=== PATIENT | male | born 1985 | race Caucasian/White ===

== ENCOUNTER 2017-10-25 17:36 | Emergency (ER) | payer OTHER ==
[~2017-10-25] VITALS: Ht 170.2 cm; Wt 111.0 kg
[~2017-10-25 17:36] MED LIST: GLC/500 PO; LISI-725 PO; OMEP40CA PO
[2017-10-25 17:40] VITALS: TEMP 37; Ht 170.2 cm; Wt 111.0 kg
--- NOTE | 2017-10-25 18:31 | EMERGENCY ROOM VISIT NOTE ---
History First contact with patient: 17:48 Chief Complaint: RASH Stated Complaint: BAD RASH ON HANDS AND FEET (TYPE 2 DIABETIC) History of Present Illness The patient is a 32 year old male who presents to the Emergency Room with complaints of a rash to his feet has recently spread to his hands. The patient' s rash on the feet has been going on for at least one month. He initially tried Neosporin and bandages with no relief. The patient saw his primary care 2 days ago. He was told that it was athlete's foot. He was instructed to put on antifungal cream, which he has been doing twice daily for the last 2 days. He has not noticed an improvement. He denies any other systemic symptoms such as fever or chills. The patient does have a history of type 2 diabetes. His blood sugars have been anywhere from 120s-180s. Review of Systems 6 system review negative. Please see pertinent positives in the history of present illness section. Past Medical/Surgical History Medical Problems: (1) Benign hypertension (2) Diabetes Family History Cancer Diabetes mellitus FHx: lung disease Hypertension Social History Smoking Status: Current Every Day Smoker Alcohol Use: none Drug Use: none Marital Status: in relationship Housing Status: lives with family Occupation Status: employed Current/Historical Medications Scheduled Atorvastatin (Lipitor), 10 MG PO QAM Lisinopril (Lisinopril), 20 MG PO QAM Metformin Hcl (Glucophage), 1,000 MG PO BIDM Omeprazole (Prilosec), 40 MG PO QAM Physical Exam Vital Signs Date Time Temp Pulse Resp B/P (MAP) Pulse Ox O2 Delivery O2 Flow Rate FiO2 10/25/17 18:48 100 18 156/104 95 10/25/17 17:40 37.0 105 18 147/104 96 Room Air Physical Exam VITALS: Vitals are noted on the nurse's note and reviewed by myself. Vital signs stable. GENERAL: 32-year-old male, in no acute distress, nondiaphoretic, well-developed well-nourished. SKIN: RIGHT FOOT: 2 mm, circular vesicles filled with serous fluid noted to the right heel. Some white plaques noted to the webspaces. LEFT FOOT: Approximate 1 cm circular, scaling, excoriated lesion noted to the arch of the left foot. RIGHT HAND: Approximately 1 cm area of excoriation and scaling noted to the palmar aspect of the right hand. No surrounding erythema or edema noted to any of the areas. No warmth appreciated.. HEAD: Normocephalic atraumatic. MUSCULOSKELETAL: Strength 5/5 throughout. NEURO: Patient was alert and oriented to person place and time. Normal sensation to touch. No focal neurological deficits. Medical Decision & Procedures ED Course The patient was seen and examined Discharge instructions were reviewed, and he was discharged in good condition Medical Decision Differential diagnosis: Tinea pedis, cellulitis, diabetic dermatitis, viral infection This patient is a 32-year-old male with a history of diabetes type 2 that presents the emergency department with painful lesions on his feet and spreading to his hands. On exam, he has areas of tinea pedis in between the toes. He also has areas of scaling and excoriation on the feet and hands. The patient saw his primary care physician and was started on an antifungal. He has only been taking this for the last 2 days. I believe the presentation is likely consistent with tinea pedis. There is no signs of bacterial infection. No erythema, warmth or fever. He was encouraged to keep the course with the antifungals for at least another week. He also was counseled on the importance of keeping his feet dry. He is in agreement and comfortable with this plan. He is encouraged to return to the emergency department with worsening symptoms; especially, fever, increased warmth, swelling or pain. This chart was completed in part utilizing [employer] Speech Voice Recognition software. Attempts were made to minimize the grammatical errors, random word insertions, pronoun errors and incomplete sentences. Any formal questions or concerns about the content, text or information contained within the body of this dictation should be directly addressed to the provider for clarification. Medication Reconcilliation Current Medication List: was personally reviewed by me Blood Pressure Screening Patient's blood pressure: Elevated blood pressure Blood pressure disposition: Did not require urgent referral (asymptomatic) Impression Primary Impression: Tinea pedis Departure Information Dispostion Home / Self-Care Condition GOOD Referrals Janet Carney D.O. (PCP) Anton Vivas M.D. Patient Instructions My [facility] Additional Instructions You had been evaluated in the emergency department for a rash to your feet and hands. Please continue to treat athlete's foot with a topical antifungal cream twice daily. Please try this for at least one week. It is very important to keep the feet dry. Thoroughly dry after showering. Please take Claritin during the day or Benadryl at night as needed for itching. It may help to keep socks on at night to prevent scratching the area. Please follow-up with your primary care physician in one week for recheck If there is no improvement in 2 weeks, you may consider following with a [employer]orer hides [employer]. A number has been provided. Please do not hesitate to return to the emergency department with worsening symptoms; especially, increased redness, swelling, pain or fever
[2017-10-25] MEDS ORDERED: METF-384 PO (18:40)
[2017-10-25] MEDS ORDERED: OMEP40CA41 PO (18:40)
[2017-10-25] MEDS ORDERED: LSN20 PO (18:40)
[2017-10-25 18:48] VITALS: BP 156/104; PULSE 100; O2SAT 95
[2017-10-25] MEDS ORDERED: ATOR10TA82 PO (22:01)
== END 2017-10-25 18:49 | disposition home or self-care (01) ==
LOC: C.EDB 17:37 → C.EDD 18:49
DX: B35.3 Tinea pedis (principal); E11.9 Type 2 diabetes mellitus without complications; I10 Essential (primary) hypertension; F17.200 Nicotine dependence, unspecified, uncomplicated; Z79.84 Long term (current) use of oral hypoglycemic drugs; Z80.9 Family history of malignant neoplasm, unspecified; Z83.3 Family history of diabetes mellitus; Z82.49 Family history of ischemic heart disease and other diseases of the circulatory system

== ENCOUNTER 2017-11-13 22:47 | Emergency (ER) | payer OTHER ==
[~2017-11-13] VITALS: Ht 170.2 cm; Wt 110.2 kg
[~2017-11-13 22:47] MED LIST changes: +ATOR10TA82 PO; -GLC/500 PO; -LISI-725 PO; +LSN20 PO; +METF-384 PO; -OMEP40CA PO; +OMEP40CA41 PO
[2017-11-13 22:49] VITALS: TEMP 36.7; Ht 170.2 cm; Wt 110.2 kg
[2017-11-13] MEDS ORDERED: CLINDAMYCIN HCL 150 MG CAP PO ONE (23:15)
[2017-11-13] MEDS ORDERED: CLIN300C2 PO (23:44)
--- NOTE | 2017-11-13 23:44 | EMERGENCY ROOM VISIT NOTE ---
History Report prepared by Fara: Severino Stanford Under the Supervision of: Dr. Lawrence Cabrera D.O. First contact with patient: 22:58 Chief Complaint: DENTAL PAIN Stated Complaint: VERY BAD TOOTH INFECTION Nursing Triage Summary: Pt has had infections in mouth before. Pt has appointment next month pain started yesterday on bottom left. Pt reports top of tooth broke off about a week ago and couldn't get in to see dentist for about a month. History of Present Illness The patient is a 32 year old male who presents to the Emergency Room with complaints of worsening pain/swelling in his left lower jaw that began a few days ago. The patient states that he broke a tooth in the lower left side of his mouth two weeks ago. He now is experiencing some pain and swelling around that tooth. Nothing seems to improve the pain. He did feel a fever earlier today , but this has now resolved. Source of History: patient Onset: A few days ago Position: teeth (left lower mouth) Timing: worsening Modifying Factors (Relieving): other (N/a) Associated Symptoms: + fevers Review of Systems See HPI for pertinent positives & negatives. A total of 10 systems reviewed and were otherwise negative. Past Medical & Surgical Medical Problems: (1) Benign hypertension (2) Diabetes Family History Cancer Diabetes mellitus FHx: lung disease Hypertension Social History Smoking Status: Current Every Day Smoker Alcohol Use: none Drug Use: none Marital Status: in relationship Housing Status: lives with family Occupation Status: employed Current/Historical Medications Scheduled Atorvastatin (Lipitor), 10 MG PO QAM Clindamycin Hcl (Cleocin), 300 MG PO QID Lisinopril (Lisinopril), 20 MG PO QAM Metformin Hcl (Glucophage), 1,000 MG PO BIDM Omeprazole (Prilosec), 40 MG PO QAM Allergies Coded Allergies: Shellfish (Verified Allergy, Severe, ANAPHYLAXIS, 10/25/17) Penicillins (Unverified Allergy, Mild, 01/19/16) Iodine (Verified Allergy, Unknown, SEAFOOD- THROAT SWELLS SHUT, 01/19/16) Uncoded Allergies: GENERAL ANETHESIA (Adverse Reaction, Intermediate, UNKNOWN, 12/02/09) Physical Exam Vital Signs Date Time Temp Pulse Resp B/P (MAP) Pulse Ox O2 Delivery O2 Flow Rate FiO2 11/13/17 22:49 36.7 108 20 158/109 98 Room Air Physical Exam CONSTITUTIONAL/VITAL SIGNS: Reviewed / noted above. GENERAL: Non-toxic in appearance. INTEGUMENTARY: Warm, dry, and Stokes. HEAD: Normocephalic. EYES: without scleral icterus or trauma. ENT/OROPHARYNX: clear and moist. Tooth number 19 is broke at or below the level of the gum line, no obvious abscess or mucosal edema. No Facial swelling. LYMPHADENOPATHY/NECK: Is supple without lymphadenopathy or meningismus. RESPIRATORY: Lungs clear and equal. CARDIOVASCULAR: Regular rate and rhythm. GI/ABDOMEN: Soft and nontender. No organomegaly or pulsatile mass. No rebound or guarding. Normal bowel sounds. EXTREMITIES: Warm and well perfused. BACK: No CVA tenderness. NEUROLOGICAL: Intact without focal deficits. PSYCHIATRIC: normal affect. MUSCULOSKELETAL: Normally developed with good muscle tone. Medical Decision & Procedures Medications Administered Medications (Trade) Dose Ordered Sig/Ovidio Route Start Time Stop Time Status Last Admin Dose Admin Clindamycin HCl (Cleocin Cap) 300 mg NOW ONCE PO 11/13/17 23:15 11/13/17 23:16 DC 11/13/17 23:21 300 MG ED Course 2258: Previous medical records were reviewed. The patient was evaluated in room A3. A complete history and physical examination was performed. 2315: Ordered Clindamycin HCl 300 mg PO. 2315: After discussion with the patient he is in agreement with the treatment plan. he will follow up with his dentist. The patient will be discharged home. Medical Decision Differential includes abscess, Singh, dental fracture, Clive's angina, facial swelling/infection. This is a 32-year-old male who presents to the ED with a chief complaint of some left-sided face discomfort related to a dental fracture in the lower left maxillary area. He was concerned he might be getting an infection. The patient has a follow-up appointment with his dentist next month. The patient was examined. There is no obvious abscess or facial swelling. No significant lymphadenopathy. Patient does have a dental fracture as noted above. This appears to be chronic. The patient was started on clindamycin as he is allergic to penicillin. He was given a dose here tonight. He was felt to be stable for discharge. A prescription was provided. He does have follow-up with his dentist. Impression Primary Impression: Dentalgia Scribe Attestation The scribe's documentation has been prepared under my direction and personally reviewed by me in its entirety. I confirm that the note above accurately reflects all work, treatment, procedures, and medical decision making performed by me. Departure Information Dispostion Home / Self-Care Prescriptions Clindamycin Hcl (CLEOCIN) 300 Mg Cap 300 MG PO QID, #40 CAP Prov: Lawrence Cabrera D.O. 11/13/17 Referrals Janet Carney D.O. (PCP) Patient Instructions My [facility] Additional Instructions Clindamycin as prescribed. Follow-up with your dentist.
[2017-11-13 23:53] VITALS: BP 134/103; PULSE 92; O2SAT 96
== END 2017-11-13 23:54 | disposition home or self-care (01) ==
LOC: C.EDB 22:48 → C.EDA 23:54
DX: K08.89 Other specified disorders of teeth and supporting structures (principal); I10 Essential (primary) hypertension; E11.9 Type 2 diabetes mellitus without complications; Z83.3 Family history of diabetes mellitus; Z82.49 Family history of ischemic heart disease and other diseases of the circulatory system; F17.200 Nicotine dependence, unspecified, uncomplicated; Z91.013 Allergy to seafood; Z88.3 Allergy status to other anti-infective agents

== ENCOUNTER 2017-12-05 01:56 | Emergency (ER) | payer OTHER ==
[~2017-12-05] VITALS: Ht 165.1 cm; Wt 108.0 kg
[2017-12-05 02:01] VITALS: TEMP 37.5; Ht 165.1 cm; Wt 108.0 kg
[2017-12-05] MEDS ORDERED: MoRPHine SULFATE 4 MG/ML 1 ML CARP\\VIAL IV STA (02:24)
[2017-12-05] MEDS ORDERED: ONDANSETRON INJ 2 MG/ML 2 ML VIAL IV STA (02:24)
[2017-12-05] MEDS ORDERED: OPTIRAY 320 IV PRN (02:45)
[2017-12-05 03:19] LABS: BASO % 0.4 %; BASO ABS # 0.06 K/uL (0-0.2); EOS % 0.9 %; EOS ABS # 0.13 K/uL (0-0.5); HEMATOCRIT 37.7 % (42-52); HEMOGLOBIN 13.7 g/dL (14.0-18.0); IG# 0.06 K/uL (0.00-0.02); LYMPH % 26.7 %; LYMPH ABS # 3.71 K/uL (1.2-3.4); MEAN CELL VOLUME 81.8 fL (80-100); MEAN CORPUSCULAR HEMOGLOBIN 29.7 pg (25-34); MEAN CORPUSCULAR HGB CONC 36.3 g/dl (32-36); MEAN PLATELET VOLUME 8.5 fL (7.4-10.4); MONO % 9.2 %; MONO ABS # 1.28 K/uL (0.11-0.59); NEUT % 62.4 %; NEUT ABS # 8.68 K/uL (1.4-6.5); PLATELET COUNT 370 K/uL (130-400); RED CELL DISTRIBUTION WIDTH CV 13.1 % (11.5-14.5); RED CELL DISTRIBUTION WIDTH SD 39.5 fL (36.4-46.3); WHITE BLOOD COUNT 13.92 K/uL (4.8-10.8)
[2017-12-05] MEDS ORDERED: CEFTRIAXONE SOD INJ 1 GM ADDVIAL IV STA (03:39)
[2017-12-05 03:41] LABS: ALBUMIN 3.9 gm/dl (3.4-5.0); CALCIUM 9.1 mg/dl (8.5-10.1); CREATININE 0.7 mg/dl (0.60-1.40); POTASSIUM 3.4 mmol/L (3.5-5.1)
[2017-12-05 03:44] LABS: TOTAL PROTEIN 7.6 gm/dl (6.4-8.2)
[2017-12-05] MEDS ORDERED: ONDANSETRON HOME PACK 4MG OD TAB PO ONE (03:45)
[2017-12-05] MEDS ORDERED: OXYCODONE IR HOME PACK PO ONE (03:45)
[2017-12-05] MEDS ORDERED: CEPHALEXIN 500MG HOME PACK 1 EA BTL PO ONE (03:45)
[2017-12-05] MEDS ORDERED: KETOROLAC TROMETHAMINE 15 MG/ML VIAL ONE (04:05)
[2017-12-05] MEDS ORDERED: CEPH500C2 PO (04:21)
[2017-12-05 04:38] VITALS: BP 128/81; PULSE 99; O2SAT 99
--- NOTE | 2017-12-05 05:53 | EMERGENCY ROOM VISIT NOTE ---
History First contact with patient: 02:06 Chief Complaint: GROIN PAIN Stated Complaint: PROBLEMS IN MY GENITAL REGION History of Present Illness The patient is a 32 year old male who presents to the Emergency Room with complaints of left groin pain and possible infection for the past 2 days. Patient states this area rubs a lot at work. It also is quite sweaty a lot. Blood sugars been running around 200. Patient describes the pain as discomfort , ranging in severity 6 out of 10 worse with palpation better with rest. Patient denies fevers, nausea, vomiting, diarrhea, testicular pain, penile pain , abdominal pain, flank pain, problems urinating. No history of MRSA. No IV drug abuse. Tetanus is current. Review of Systems An 10 system review of systems was completed with positives and pertinent negatives listed in the HPI. Past Medical/Surgical History Medical Problems: (1) Benign hypertension (2) Diabetes Family History Cancer Diabetes mellitus FHx: lung disease Hypertension Social History Smoking Status: Current Every Day Smoker Alcohol Use: none Drug Use: none Marital Status: in relationship Housing Status: lives with family Occupation Status: employed Current/Historical Medications Scheduled Atorvastatin (Lipitor), 10 MG PO QAM Cephalexin Monohydrate (Keflex), 500 MG PO QID Lisinopril (Lisinopril), 20 MG PO QAM Metformin Hcl (Glucophage), 1,000 MG PO BIDM Omeprazole (Prilosec), 40 MG PO QAM Physical Exam Vital Signs Date Time Temp Pulse Resp B/P (MAP) Pulse Ox O2 Delivery O2 Flow Rate FiO2 12/05/17 04:38 99 18 128/81 99 12/05/17 02:47 109 16 98 Room Air 12/05/17 02:01 37.5 116 16 138/85 97 Room Air Physical Exam VITALS: Vitals are noted on the nurse's note and reviewed by myself. Vital signs mildly tachycardic GENERAL: Pleasant male, in no acute distress, nondiaphoretic, well-developed well-nourished. SKIN: Capillary reflex less than 2 seconds. HEENT: Normocephalic. PERRLA. EOMI. Nares patent. Mucous membranes moist. Neck is supple without nuchal rigidity. HEART: Regular rate and rhythm without murmurs gallops or rubs. LUNGS: Clear to auscultation bilaterally without wheezes, rales or rhonchi. No retractions or accessory muscle use. ABDOMEN: Positive bowel sounds x 4. Normal tympanic percussion. Soft, nontender, without masses or organomegaly. Urias sign negative. No guarding or rebound tenderness. No CVA tenderness exam: Left groin erythematous and edematous without fluctuance 4 cm x 6 cm concerning for cellulitis with reactive lymph nodes. No perineum pain. Bandage Maker present. MUSCULOSKELETAL: No gross musculoskeletal defects. NEURO: Patient was alert and oriented to person place and time. Normal sensation to light and sharp touch. No focal neurological deficits. Medical Decision & Procedures Laboratory Results 12/05/17 02:45 Red Blood Count 4.61, Mean Corpuscular Volume 81.8, Mean Corpuscular Hemoglobin 29.7, Mean Corpuscular Hemoglobin Concent 36.3, Mean Platelet Volume 8.5, Neutrophils (%) (Auto) 62.4, Lymphocytes (%) (Auto) 26.7, Monocytes (%) (Auto) 9.2, Eosinophils (%) (Auto) 0.9, Basophils (%) (Auto) 0.4, Neutrophils # (Auto) 8.68, Lymphocytes # (Auto) 3.71, Monocytes # (Auto) 1.28, Eosinophils # (Auto) 0.13, Basophils # (Auto) 0.06 12/05/17 02:45 Test 12/05/17 02:45 12/05/17 02:52 White Blood Count 13.92 K/uL (4.8-10.8) Red Blood Count 4.61 M/uL (4.7-6.1) Hemoglobin 13.7 g/dL (14.0-18.0) Hematocrit 37.7 % (42-52) Mean Corpuscular Volume 81.8 fL (80-100) Mean Corpuscular Hemoglobin 29.7 pg (25-34) Mean Corpuscular Hemoglobin Concent 36.3 g/dl (32-36) Platelet Count 370 K/uL (130-400) Mean Platelet Volume 8.5 fL (7.4-10.4) Neutrophils (%) (Auto) 62.4 % Lymphocytes (%) (Auto) 26.7 % Monocytes (%) (Auto) 9.2 % Eosinophils (%) (Auto) 0.9 % Basophils (%) (Auto) 0.4 % Neutrophils # (Auto) 8.68 K/uL (1.4-6.5) Lymphocytes # (Auto) 3.71 K/uL (1.2-3.4) Monocytes # (Auto) 1.28 K/uL (0.11-0.59) Eosinophils # (Auto) 0.13 K/uL (0-0.5) Basophils # (Auto) 0.06 K/uL (0-0.2) RDW Standard Deviation 39.5 fL (36.4-46.3) RDW Coefficient of Variation 13.1 % (11.5-14.5) Immature Granulocyte % (Auto) 0.4 % Immature Granulocyte # (Auto) 0.06 K/uL (0.00-0.02) Anion Gap 4.0 mmol/L (3-11) Est Creatinine Clear Calc Drug Dose 168.5 ml/min Estimated GFR () 142.7 Estimated GFR (Non- 123.1 BUN/Creatinine Ratio 24.5 (10-20) Calcium Level 9.1 mg/dl (8.5-10.1) Total Bilirubin 0.4 mg/dl (0.2-1) Direct Bilirubin 0.1 mg/dl (0-0.2) Aspartate Amino Transf (AST/SGOT) 15 U/L (15-37) Alanine Aminotransferase (ALT/SGPT) 57 U/L (12-78) Alkaline Phosphatase 103 U/L (45-117) Total Protein 7.6 gm/dl (6.4-8.2) Albumin 3.9 gm/dl (3.4-5.0) Bedside Lactic Acid Venous 0.87 mmol/L (0.90-1.70) Medications Administered Medications (Trade) Dose Ordered Sig/Ovidio Route Start Time Stop Time Status Last Admin Dose Admin Morphine Sulfate (MoRPHine SULFATE INJ) 4 mg NOW STAT IV 12/05/17 02:24 12/05/17 02:27 DC 12/05/17 02:45 4 MG Ondansetron HCl (Zofran Inj) 4 mg NOW STAT IV 12/05/17 02:24 12/05/17 02:27 DC 12/05/17 02:45 4 MG Ceftriaxone Sodium (Rocephin Inj) 1 gm NOW STAT IV 12/05/17 03:39 12/05/17 03:40 DC 12/05/17 04:23 1 GM Ketorolac Tromethamine (Toradol Inj) 15 mg STK-MED ONCE .ROUTE 12/05/17 04:05 12/05/17 04:06 DC 12/05/17 04:23 15 MG ED Course Prior records reviewed and summarized as above. Triage Nursing notes reviewed. Additional history obtained from family. The patient's history was concerning for swelling and redness of the skin. Differential diagnosis: Etiologies such as cellulitis, abscess, MRSA infection, DVT, necrotizing fasciitis, dermatitis, drug eruption, as well as others were entertained.. Physical examination: The physical examination was consistent with cellulitis ER treatment provided: Rocephin, complete Keflex and OxyIR. Patient states he has had Keflex in the past without difficulties On reassessment the patient felt better. Diagnostics interpreted by me: The labs revealed mild leukocytosis. Negative lactic acid. Imaging studies: CT pelvis with no signs of abscess, concerns or cellulitis per stat radiology This appears to be isolated cellulitis. Patient was started on antibiotics. No signs of Addie's gangrene. He was afebrile nontoxic. He had no signs of abscess. He was advised to take antibiotics as directed and to follow-up family care in 2 days for reevaluation or here in the ER sooner for spreading of infection, fevers, vomiting, worsening sinus symptoms or as needed. He was advised to monitor his blood sugars.By the evaluation outlined above emergent etiologies such as abscess, necrotizing fasciitis, DVT, as well as others were deemed relatively unlikely. The pt informed about the findings as listed above. All questions were answered and pleased with the treatment. Return instructions were outlined and the patient was discharged in stable condition. Outpatient prescription management: Keflex Referral: The patient was referred back to primary care physician for follow-up in 2 to 3 days for a recheck of the current condition. Case reviewed with my attending The chart was completed utilizing [employer] voice recognition software. Grammatical errors, random word insertions, pronoun errors, and incomplete sentences are an occassional consequence of this system due to software limitations, ambient noise, and hardware issues. Any formal questions or concerns about the content, text, or information contained within the body of this dictation should be directly addressed to the physician nurse practitioner physician assistant for clarification. Medical Decision As above [place] Drug Monitoring Program Search Results: patient reviewed within database, no issues identified Medication Reconcilliation Current Medication List: was personally reviewed by me Blood Pressure Screening Patient's blood pressure: Normal blood pressure Impression Primary Impression: Cellulitis of left groin Additional Impressions: Hypokalemia Anemia Departure Information Dispostion Home / Self-Care Condition GOOD Prescriptions Cephalexin Monohydrate (KEFLEX) 500 Mg Cap 500 MG PO QID for 9 Days, #36 CAP Prov: Ayah Harley PA-C 12/05/17 Forms WORK / SCHOOL INSTRUCTIONS, HOME CARE DOCUMENTATION FORM, Days off work : 2 Work Instructions, IMPORTANT VISIT INFORMATION Patient Instructions Cellulitis - [facility], My [facility] Additional Instructions Cephalexin(Keflex) 500mg: Take one pill four times daily for 10 days for your skin infection. All antibiotics can cause diarrhea. If this occurs and you feel worse or it does not resolve in 1-2 days follow up with your doctor or return to the Emergency Department as this could be signs of serious underlying problems. Any medication can cause an allergic reaction, stop the pills immediately and return to the ER for rash, hives, breathing difficulties, or swelling. Monitor your blood sugars. Ibuprofen(Motrin, Advil) may be used for fever or pain. Use 600mg every six hours as needed. Take with food. Avoid using more than 2400mg in a 24 hour period. Do not use 2400mg per day for more than three consecutive days without physician direction. Prolonged inappropriate use can lead to stomach upset or ulcers. (AND/OR) Acetaminophen(Tylenol) may be used for fever or pain. Use 1000mg every six hours as needed. Avoid using more than 3000mg in a 24 hour period. Warm compresses to the affected area 4 times daily for 15-20 minutes. Rest and drink plenty of fluids. Continue current medications. Return to the ER for severe pain, persistent fevers, spreading redness, or any worsening of your condition. Follow up with your primary physician within 2-3 days for a recheck of the current condition. Problem Qualifiers
--- NOTE | 2017-12-05 07:15 | DIAGNOSTIC IMAGING REPORT ---
PELVIS NO IV/ORAL CONT (CT) HISTORY: 32 years-old Male left groin infx, DM, ? abcsess acute left groin infection with concern for abscess COMPARISON: CT abdomen and pelvis 06/22/2015 TECHNIQUE: Multiple axial CT images of the pelvis were obtained without the use of IV contrast. A dose lowering technique was used consistent with the principals of ELISE. FINDINGS: Horseshoe kidney redemonstrated. Normal appendix. No bowel wall thickening or bowel dilation. Mild atherosclerosis of the aorta and iliac vasculature. Small Fat-containing left inguinal hernia. Mildly prominent nonenlarged lymph nodes of the left inguinal chain measure up to 9 mm, likely reactive. There is mild subcutaneous stranding and skin thickening about the left inguinal region, nicely seen on image 287 series 3 adjacent to the left scrotum without loculated fluid collection to suggest abscess. Moderate sized posterior disc osteophyte complex at L5-S1 and to lesser extent at L4-L5. Bones appear intact. IMPRESSION: 1. Mild cellulitis and phlegmonous change about the left inguinal soft tissues adjacent to the left hemiscrotum without drainable fluid collection to suggest abscess. 2. Mild reactive left inguinal adenopathy. 3. Normal appendix. 4. Small fat filled left inguinal hernia. The above report was generated using voice recognition software. It may contain grammatical, syntax or spelling errors. Electronically signed by: Reyes Duque M.D. 12/05/2017 7:14 AM Dictated Date/Time: 12/05/2017 7:09 AM
[2017-12-05] MEDS ORDERED: IBUP-1451 PO (19:04)
[2017-12-05] MEDS ORDERED: SACC250C3 PO (19:04)
[2017-12-05] MEDS ORDERED: CLIN150C PO (19:04)
== END 2017-12-05 04:39 | disposition home or self-care (01) ==
LOC: C.EDB 01:57
DX: L03.314 Cellulitis of groin (principal); E87.6 Hypokalemia; D64.9 Anemia, unspecified; I10 Essential (primary) hypertension; E11.9 Type 2 diabetes mellitus without complications; Z83.3 Family history of diabetes mellitus; F17.200 Nicotine dependence, unspecified, uncomplicated

== ENCOUNTER 2017-12-05 17:08 | Emergency (ER) | payer OTHER ==
[~2017-12-05] VITALS: Ht 167.6 cm; Wt 107.7 kg
[~2017-12-05 17:08] MED LIST changes: +CEPH500C2 PO
[2017-12-05 17:19] VITALS: TEMP 37; Ht 167.6 cm; Wt 107.7 kg
[2017-12-05] MEDS ORDERED: CLINDAMYCIN 600 MG/54 ML D5W IV STA (17:39)
[2017-12-05] MEDS ORDERED: SODIUM CHLORIDE 0.9% 1000ML 1,000 ML IV STA (17:39)
--- NOTE | 2017-12-05 17:40 | EMERGENCY ROOM VISIT NOTE ---
History Report prepared by Fara: Dakota Michael Under the Supervision of: Dr. Austin Ngo M.D. First contact with patient: 17:27 Chief Complaint: INFECTION Stated Complaint: CELLULITIS History of Present Illness The patient is a 32 year old male who presents to the Emergency Room with complaints of a worsening infection to his groin beginning two days ago. The patient states he was evaluated in ED 16 hours ago. He reports he had a CT and blood work performed. The patient notes he was discharged on antibiotics and was told it was the start of an abscess. He states he started his antibiotics after discharge. The patient reports he went to the grocery store and felt wet in his groin. He notes he immediately went home. The patient states he pulled his genitals to the side and noticed a bloody, milky, white drainage. He reports there is less pressure than before, the pain is still severe, and he is mildly nauseous. The patient notes it has moved from his groin to his mid-left thigh. He states he has a history of diabetes, and he is working on getting his blood sugar controlled. The patient denies fevers, chills, and abdominal pain. Source of History: patient Onset: 2 days ago Position: other (groin) Quality: other (infection) Timing: worsening Associated Symptoms: No fevers, No chills, No abdominal pain Note: Associated symptoms: bloody, milky, white drainage Review of Systems See HPI for pertinent positives and negatives. A total of ten systems were reviewed and were otherwise negative. Past Medical & Surgical Medical Problems: (1) Benign hypertension (2) Diabetes Family History Cancer Diabetes mellitus FHx: lung disease Hypertension Social History Smoking Status: Current Every Day Smoker Alcohol Use: none Drug Use: none Marital Status: in relationship Housing Status: lives with family Occupation Status: employed Current/Historical Medications Scheduled Atorvastatin (Lipitor), 10 MG PO QAM Cephalexin Monohydrate (Keflex), 500 MG PO QID Clindamycin Hcl (Cleocin), 600 MG PO TID Lisinopril (Lisinopril), 20 MG PO QAM Metformin Hcl (Glucophage), 1,000 MG PO BIDM Omeprazole (Prilosec), 40 MG PO QAM Saccharomyces Boulardii (Florastor), 1 CAP PO BID Scheduled PRN Ibuprofen Tab (Motrin), 800 MG PO Q8H PRN for Pain Allergies Coded Allergies: Shellfish (Verified Allergy, Severe, ANAPHYLAXIS, 12/05/17) Penicillins (Unverified Allergy, Mild, 12/05/17) Iodine (Verified Allergy, Unknown, SEAFOOD- THROAT SWELLS SHUT, 12/05/17) Uncoded Allergies: GENERAL ANETHESIA (Adverse Reaction, Intermediate, UNKNOWN, 12/02/09) Physical Exam Vital Signs Date Time Temp Pulse Resp B/P (MAP) Pulse Ox O2 Delivery O2 Flow Rate FiO2 12/05/17 19:31 78 18 126/81 98 Room Air 12/05/17 18:40 101 18 134/93 98 Room Air 12/05/17 17:19 37.0 108 16 137/88 97 Room Air Physical Exam GENERAL: Awake, alert, well-appearing, in no distress HENT: Normocephalic, atraumatic. Oropharynx has dry mucous membranes, otherwise unremarkable. EYES: Normal conjunctiva. Sclera non-icteric. NECK: Supple. No nuchal rigidity. FROM. No JVD. RESPIRATORY: Clear to auscultation. CARDIAC: Regular rate, normal rhythm. Extremities warm and well perfused. Pulses equal. ABDOMEN: Soft, non-distended. No tenderness to palpation. No rebound or guarding. No masses. : 3cm of induration and mild fluctuance with punctate opening with purulent discharge. RECTAL: Deferred. MUSCULOSKELETAL: Chest examination reveals no tenderness. The back is symmetrical on inspection without obvious abnormality. There is no CVA tenderness to palpation. No joint edema. LOWER EXTREMITIES: Calves are equal size bilaterally and non-tender. No edema. No discoloration. NEURO: Normal sensorium. No sensory or motor deficits noted. SKIN: No rash or jaundice noted. Medical Decision & Procedures ER Provider Diagnostic Interpretation: Radiology results as stated below per my review and radiologist interpretation: Bedside Ultrasound: No discrete fluid collection; however, there is is extensive phlegmon. Laboratory Results 12/05/17 17:50 Red Blood Count 4.65, Mean Corpuscular Volume 82.8, Mean Corpuscular Hemoglobin 30.3, Mean Corpuscular Hemoglobin Concent 36.6, Mean Platelet Volume 8.5, Neutrophils (%) (Auto) 64.3, Lymphocytes (%) (Auto) 25.5, Monocytes (%) (Auto) 8.3, Eosinophils (%) (Auto) 1.2, Basophils (%) (Auto) 0.3, Neutrophils # (Auto) 8.94, Lymphocytes # (Auto) 3.53, Monocytes # (Auto) 1.15, Eosinophils # (Auto) 0.16, Basophils # (Auto) 0.04 12/05/17 17:50 Test 12/05/17 17:50 White Blood Count 13.87 K/uL (4.8-10.8) Red Blood Count 4.65 M/uL (4.7-6.1) Hemoglobin 14.1 g/dL (14.0-18.0) Hematocrit 38.5 % (42-52) Mean Corpuscular Volume 82.8 fL (80-100) Mean Corpuscular Hemoglobin 30.3 pg (25-34) Mean Corpuscular Hemoglobin Concent 36.6 g/dl (32-36) Platelet Count 363 K/uL (130-400) Mean Platelet Volume 8.5 fL (7.4-10.4) Neutrophils (%) (Auto) 64.3 % Lymphocytes (%) (Auto) 25.5 % Monocytes (%) (Auto) 8.3 % Eosinophils (%) (Auto) 1.2 % Basophils (%) (Auto) 0.3 % Neutrophils # (Auto) 8.94 K/uL (1.4-6.5) Lymphocytes # (Auto) 3.53 K/uL (1.2-3.4) Monocytes # (Auto) 1.15 K/uL (0.11-0.59) Eosinophils # (Auto) 0.16 K/uL (0-0.5) Basophils # (Auto) 0.04 K/uL (0-0.2) RDW Standard Deviation 39.8 fL (36.4-46.3) RDW Coefficient of Variation 13.1 % (11.5-14.5) Immature Granulocyte % (Auto) 0.4 % Immature Granulocyte # (Auto) 0.05 K/uL (0.00-0.02) Anion Gap 5.0 mmol/L (3-11) Est Creatinine Clear Calc Drug Dose 168.7 ml/min Estimated GFR () 141.9 Estimated GFR (Non- 122.4 BUN/Creatinine Ratio 17.5 (10-20) Calcium Level 9.0 mg/dl (8.5-10.1) Total Bilirubin 0.4 mg/dl (0.2-1) Direct Bilirubin < 0.1 mg/dl (0-0.2) Aspartate Amino Transf (AST/SGOT) 16 U/L (15-37) Alanine Aminotransferase (ALT/SGPT) 53 U/L (12-78) Alkaline Phosphatase 103 U/L (45-117) Total Protein 7.4 gm/dl (6.4-8.2) Albumin 3.8 gm/dl (3.4-5.0) Lipase 99 U/L (73-393) Laboratory results reviewed by me Medications Administered Medications (Trade) Dose Ordered Sig/Ovidio Route Start Time Stop Time Status Last Admin Dose Admin Sodium Chloride 1,000 ml @ 999 mls/hr Q1H1M STAT IV 12/05/17 17:39 12/05/17 18:39 DC 12/05/17 17:59 999 MLS/HR Clindamycin Phosphate (Cleocin 600mg/ 54ml D5W) 600 mg ONE STAT IV 12/05/17 17:39 12/05/17 17:44 DC 12/05/17 18:00 600 MG Fentanyl Citrate (Fentanyl Inj) 50 mcg NOW STAT IV 12/05/17 18:32 12/05/17 18:33 DC 12/05/17 18:43 50 MCG Ketorolac Tromethamine (Toradol Inj) 15 mg NOW STAT IV 12/05/17 18:59 12/05/17 19:00 DC 12/05/17 19:31 15 MG Clindamycin HCl (Cleocin Cap) 600 mg ONE STAT PO 12/05/17 19:07 12/05/17 19:09 DC 12/05/17 19:31 600 MG Procedure Incision & Drainage Indication: Abscess. Location: left groin Verbal consent was obtained after the risks and benefits were explained, including but not limited to bleeding, scarring, infection, pain, and bone/joint /nerve damage. At this time, the risks of the procedure are less than the risks of NOT performing the procedure. A time out was taken and the correct patient and site identified. The skin was prepped with betadine and a sterile field set. The wound was anesthetized with 5 ml of 1% lidocaine without epinephrine. Existing tract was extended with a number 11 blade and purulent material expressed. Debridement was not performed. Detailed wound care instructions and signs and symptoms of worsening infection reviewed with the patient. No complications and the patient tolerated the procedure well. ED Course 1727: The patient was evaluated in room A02. A complete history and physical exam was performed. 1910: I reevaluated the patient. Discussed results and discharge instructions: he verbalized understanding and agreement. The patient is ready for discharge. Medical Decision I reviewed the patient's past medical history, medications, and the nursing notes as described above. Differential diagnosis: Etiologies such as cellulitis, abscess, foreign gangrene, as well as others were entertained. The patient is a 32 y/o gentleman who presents to the emergency department with persistent pain in his left grown now with purulent discharge after being seen in ED yesterday for the same per HPI. Of note, patient had CT scan that was negative for abscess and only demonstrated phlegmon c/w cellulitis. Bedside US today again does not demonstrate discrete fluid collection but again shows extensive phlegmon. WBC 13, unchanged from yesterday. Given discharge from apparent spontaneous tract an I&D was performed to extend this opening to allow for continue drainage of infection. Given no discrete collection only a small extension of 0.5 cm was made. Otherwise, the patient is well-appearing and AF without signs of systemic illness. Moreover, the patient does report overall improve from yesterday and there is no crepitus on exam or evidence of gas on US to suggest necrotizing iinfection/forneires gangrene. Thus will continue outpatient management. Will cover with clindamycin for MRSA and anaerobic coverage given poorly controlled diabetes and groin site. Findings and plan for follow-up reviewed with patient. Patient agreeable and d/c'd per discharge instructions. Medication Reconcilliation Current Medication List: was personally reviewed by me Blood Pressure Screening Patient's blood pressure: Normal blood pressure Blood pressure disposition: Did not require urgent referral Impression Primary Impression: Cellulitis of left groin Scribe Attestation The scribe's documentation has been prepared under my direction and personally reviewed by me in its entirety. I confirm that the note above accurately reflects all work, treatment, procedures, and medical decision making performed by me. Departure Information Dispostion Home / Self-Care Prescriptions Ibuprofen Tab (MOTRIN) 800 Mg Tab 800 MG PO Q8H Y for Pain for 14 Days, #42 TAB Prov: Austin Ngo M.D. 12/05/17 Saccharomyces Boulardii (Florastor) 250 Mg Cap 1 CAP PO BID for 14 Days, #28 CAP Prov: Austin Ngo M.D. 12/05/17 Clindamycin Hcl (CLEOCIN) 150 Mg Cap 600 MG PO TID for 14 Days, #168 CAP Prov: Austin Ngo M.D. 12/05/17 Referrals No Doctor, Assigned (PCP) Forms HOME CARE DOCUMENTATION FORM, IMPORTANT VISIT INFORMATION, WORK / SCHOOL INSTRUCTIONS Patient Instructions ED Infec Skin Cellulitis, [facility], Sitz Bath Additional Instructions Please follow up with your primary care physician tomorrow as scheduled for re- evaluation. You have a skin infection. Otherwise, your exam, bedside ultrasound and lab results did not show signs of an emergent condition at this time. Acetaminophen or ibuprofen for pain and fevers as needed. Clindamycin as directed. Discontinue your current antibiotic. Florastor, probiotic, to help prevent antibiotic associated diarrhea. Sitz bath 2-3 times daily with dressing changes. Drink plenty of fluids to ensure hydration. Return to the emergency department for worsening symptoms as described in the accompanying instructions.
[2017-12-05 18:01] LABS: BASO % 0.3 %; BASO ABS # 0.04 K/uL (0-0.2); EOS % 1.2 %; EOS ABS # 0.16 K/uL (0-0.5); HEMATOCRIT 38.5 % (42-52); HEMOGLOBIN 14.1 g/dL (14.0-18.0); IG# 0.05 K/uL (0.00-0.02); LYMPH % 25.5 %; LYMPH ABS # 3.53 K/uL (1.2-3.4); MEAN CELL VOLUME 82.8 fL (80-100); MEAN CORPUSCULAR HEMOGLOBIN 30.3 pg (25-34); MEAN CORPUSCULAR HGB CONC 36.6 g/dl (32-36); MEAN PLATELET VOLUME 8.5 fL (7.4-10.4); MONO % 8.3 %; MONO ABS # 1.15 K/uL (0.11-0.59); NEUT % 64.3 %; NEUT ABS # 8.94 K/uL (1.4-6.5); PLATELET COUNT 363 K/uL (130-400); RED CELL DISTRIBUTION WIDTH CV 13.1 % (11.5-14.5); RED CELL DISTRIBUTION WIDTH SD 39.8 fL (36.4-46.3); WHITE BLOOD COUNT 13.87 K/uL (4.8-10.8)
[2017-12-05] MEDS ORDERED: XYLOCAINE 1%/SOD BICARB 20 ML VIAL INFIL ONE (18:15)
[2017-12-05] MEDS ORDERED: FENTANYL CITRATE INJ 50 MCG/1 ML 2 ML VIAL IV STA (18:32)
[2017-12-05 18:41] LABS: ALBUMIN 3.8 gm/dl (3.4-5.0); ALT/SGPT 53 U/L (12-78); BLOOD UREA NITROGEN 13 mg/dl (7-18); CARBON DIOXIDE 26 mmol/L (21-32); CREATININE 0.71 mg/dl (0.60-1.40); GLUCOSE 163 mg/dl (70-99); LIPASE 99 U/L (73-393); POTASSIUM 3.8 mmol/L (3.5-5.1); SODIUM 137 mmol/L (136-145)
[2017-12-05 18:44] LABS: ALKALINE PHOSPHATASE 103 U/L (45-117); AST/SGOT 16 U/L (15-37); TOTAL PROTEIN 7.4 gm/dl (6.4-8.2)
[2017-12-05] MEDS ORDERED: KETOROLAC TROMETHAMINE 30 MG/ML VIAL IV STA (18:59)
[2017-12-05] MEDS ORDERED: IBUP-1451 PO (19:04)
[2017-12-05] MEDS ORDERED: CLIN150C PO (19:04)
[2017-12-05] MEDS ORDERED: SACC250C3 PO (19:04)
[2017-12-05] MEDS ORDERED: CLINDAMYCIN HCL 150 MG CAP PO STA (19:07)
[2017-12-05 19:31] VITALS: BP 126/81; PULSE 78; O2SAT 98
== END 2017-12-05 19:36 | disposition home or self-care (01) ==
LOC: C.EDB 17:09 → C.EDA 19:36
DX: L03.314 Cellulitis of groin (principal); E11.9 Type 2 diabetes mellitus without complications; I10 Essential (primary) hypertension; F17.200 Nicotine dependence, unspecified, uncomplicated; Z79.84 Long term (current) use of oral hypoglycemic drugs; Z79.899 Other long term (current) drug therapy; Z88.0 Allergy status to penicillin; Z91.013 Allergy to seafood; Z91.041 Radiographic dye allergy status; Z88.4 Allergy status to anesthetic agent; Z83.3 Family history of diabetes mellitus; Z83.6 Family history of other diseases of the respiratory system; Z82.49 Family history of ischemic heart disease and other diseases of the circulatory system